=== PATIENT | male | born 1940 | race Caucasian/White ===

== ENCOUNTER 2018-12-07 16:51 | Inpatient (IN) | payer MEDICARE ==
[2018-12-07] MEDS ORDERED: Apixaban 5 MG TAB PO SCH (21:00)
[2018-12-07] MEDS: Saccharomyces boulardii 250 MG CAP PO SCH (21:51)
[2018-12-07] MEDS: Pravastatin Sodium 20 MG TAB PO SCH (21:52)
[2018-12-07] MEDS: predniSONE 20 MG TAB PO SCH (21:52)
[2018-12-07] MEDS: Gabapentin 300 MG CAP PO SCH (21:52)
[2018-12-07] MEDS: guaiFENesin ER 600 MG TAB PO SCH (21:53)
[2018-12-07] MEDS: Lidocaine Patch Removal 1 EACH TOP SCH (21:54)
[2018-12-07] MEDS: Linezolid 600 MG TAB PO SCH (21:57)
[2018-12-07] MEDS: traZODone HCl 50 MG TAB PO SCH (22:04)
[2018-12-07] MEDS ORDERED: Vancomycin HCl 25 MG/ML Oral PO SCH (23:59)
[2018-12-08] MEDS: traMADol HCl 50 MG TAB PO SCH ×5 (00:53→23:30)
[2018-12-08] MEDS ORDERED: Sterile Water 100 ML ONE (01:00)
[2018-12-08] MEDS ORDERED: STERILE WATER PO SCH (01:15)
[2018-12-08] MEDS ORDERED: VANCOMYCIN HCL PO SCH (01:15)
[2018-12-08] MEDS ORDERED: SIMPLE PO SCH (01:15)
[2018-12-08] MEDS: VANCOMYCIN HCL PO SCH ×2 (01:22→06:13)
[2018-12-08] MEDS: STERILE WATER PO SCH ×2 (01:22→06:13)
[2018-12-08] MEDS: SIMPLE PO SCH ×2 (01:22→06:13)
[2018-12-08 05:11] LABS: #Lymphocytes 0.7 thou/uL (1.20-3.40); #Monocytes 0.6 thou/uL (0.11-0.59); #Neutrophils 15.3 thou/uL (1.40-6.50); %Basophils 0.3 % (0.0-1.0); %Eosinophils 0.1 % (0.0-10.0); %Monocytes 3.7 % (0.0-10.0); Mean Corpuscular HGB CONC 34.5 g/dL (32.0-36.0); Mean Corpuscular Hemoglobin 30.6 pg (27.0-31.0); Mean Corpuscular Volume 88.9 fL (78.0-98.0); Mean Platelet Volume 7.2 fL (7.4-10.4); Platelet Count 175 thou/uL (130-400); RBC Distribution Width 14.3 % (11.5-14.5); White Blood Cell (WBC) Count 16.6 thou/uL (4.8-10.8)
[2018-12-08 05:33] LABS: ALT (SGPT) 19 U/L (8-55); AST (SGOT) 15 U/L (5-34); Albumin 3.6 g/dL (3.4-4.8); Alkaline Phosphatase 68 U/L (40-150); Anion Gap 15 mmol/L (10-20); BUN (Urea Nitrogen) 41 mg/dL (8.4-25.7); Bilirubin, Total 1.3 mg/dL (0.2-1.2); Calc. Creatinine Clearance 0 mL/min (70-130); Calcium 8.7 mg/dL (7.8-10.44); Carbon Dioxide 28 mmol/L (23-31); Chloride 101 mmol/L (98-107); Estimated GFR-MDRD 73; Globulin 2.6 g/dL (2.4-3.5); Glucose 96 mg/dL (83-110); Potassium 3.9 mmol/L (3.5-5.1); Protein, Total 6.2 g/dL (5.8-8.1); Sodium 140 mmol/L (136-145)
[2018-12-08] MEDS: HYDROcodone/Acetaminophen 5/325 mg Tablet PO PRN ×3 (08:34→20:41)
[2018-12-08] MEDS: Clopidogrel Bisulfate 75 MG TAB PO SCH (08:35)
[2018-12-08] MEDS: guaiFENesin ER 600 MG TAB PO SCH ×2 (08:35→20:40)
[2018-12-08] MEDS: Carvedilol 3.125 MG TAB PO SCH ×2 (08:36→17:25)
[2018-12-08] MEDS: Lisinopril 10 MG TAB PO SCH (08:36)
[2018-12-08] MEDS: Saccharomyces boulardii 250 MG CAP PO SCH ×2 (08:37→20:50)
[2018-12-08] MEDS: Gabapentin 300 MG CAP PO SCH ×2 (08:37→20:40)
[2018-12-08] MEDS: predniSONE 20 MG TAB PO SCH ×2 (08:37→20:39)
[2018-12-08] MEDS: DULoxetine 30 MG CAP PO SCH (08:38)
[2018-12-08] MEDS: Furosemide 40 MG TAB PO SCH (08:38)
[2018-12-08] MEDS: Nicotine 21 MG PATCH TD SCH (08:39)
[2018-12-08] MEDS: Lidocaine 5% Patch TD SCH (08:40)
[2018-12-08] MEDS: Linezolid 600 MG TAB PO SCH ×2 (08:45→20:40)
[2018-12-08] MEDS: Vancomycin HCl 25 MG/ML Oral PO SCH ×3 (10:45→21:27)
[2018-12-08] MEDS: BUPROPION 150 MG PO SCH (10:47)
[2018-12-08] MEDS: Apixaban 5 MG TAB PO SCH ×2 (10:48→20:40)
[2018-12-08] MEDS: traZODone HCl 50 MG TAB PO SCH (20:40)
[2018-12-08] MEDS: Pravastatin Sodium 20 MG TAB PO SCH (20:40)
[2018-12-08] MEDS: Lidocaine Patch Removal 1 EACH TOP SCH (20:54)
[2018-12-09] MEDS: Vancomycin HCl 25 MG/ML Oral PO SCH ×4 (03:58→21:10)
[2018-12-09 05:00] LABS: #Lymphocytes 0.8 thou/uL (1.20-3.40); #Monocytes 0.7 thou/uL (0.11-0.59); %Basophils 0.2 % (0.0-1.0); %Eosinophils 0.4 % (0.0-10.0); %Lymphocytes 5.5 % (21.0-51.0); %Monocytes 5.1 % (0.0-10.0); %Neutrophils 88.8 % (42.0-75.0); Mean Corpuscular HGB CONC 33.8 g/dL (32.0-36.0); Mean Corpuscular Hemoglobin 30.4 pg (27.0-31.0); Mean Corpuscular Volume 90.1 fL (78.0-98.0); Mean Platelet Volume 7.1 fL (7.4-10.4); Platelet Count 156 thou/uL (130-400); RBC Distribution Width 14.6 % (11.5-14.5); Red Blood Cell (RBC) Count 4.93 mill/uL (4.70-6.10); White Blood Cell (WBC) Count 13.6 thou/uL (4.8-10.8)
[2018-12-09 05:07] LABS: Anion Gap 16 mmol/L (10-20); BUN (Urea Nitrogen) 36 mg/dL (8.4-25.7); Calc. Creatinine Clearance 82 mL/min (70-130); Calcium 8.8 mg/dL (7.8-10.44); Carbon Dioxide 26 mmol/L (23-31); Chloride 102 mmol/L (98-107); Estimated GFR-MDRD 73; Glucose 105 mg/dL (83-110); Potassium 3.8 mmol/L (3.5-5.1); Sodium 140 mmol/L (136-145)
[2018-12-09] MEDS: traMADol HCl 50 MG TAB PO SCH ×3 (06:08→17:43)
[2018-12-09] MEDS: Furosemide 40 MG TAB PO SCH (07:59)
[2018-12-09] MEDS: Nicotine 21 MG PATCH TD SCH (08:07)
[2018-12-09] MEDS: BUPROPION 150 MG PO SCH (08:10)
[2018-12-09] MEDS: Lidocaine 5% Patch TD SCH (08:11)
[2018-12-09] MEDS: Carvedilol 3.125 MG TAB PO SCH ×2 (08:12→17:44)
[2018-12-09] MEDS: Apixaban 5 MG TAB PO SCH ×2 (08:12→20:58)
[2018-12-09] MEDS: guaiFENesin ER 600 MG TAB PO SCH ×2 (08:12→20:58)
[2018-12-09] MEDS: DULoxetine 30 MG CAP PO SCH (08:12)
[2018-12-09] MEDS: Gabapentin 300 MG CAP PO SCH ×2 (08:12→20:58)
[2018-12-09] MEDS: Lisinopril 10 MG TAB PO SCH (08:13)
[2018-12-09] MEDS: Saccharomyces boulardii 250 MG CAP PO SCH ×2 (08:13→20:58)
[2018-12-09] MEDS: predniSONE 20 MG TAB PO SCH ×2 (08:13→20:58)
[2018-12-09] MEDS: Clopidogrel Bisulfate 75 MG TAB PO SCH (08:13)
[2018-12-09] MEDS: Linezolid 600 MG TAB PO SCH ×2 (08:13→20:58)
[2018-12-09] MEDS: HYDROcodone/Acetaminophen 5/325 mg Tablet PO PRN (20:58)
[2018-12-09] MEDS: traZODone HCl 50 MG TAB PO SCH (20:58)
[2018-12-09] MEDS: Pravastatin Sodium 20 MG TAB PO SCH (20:58)
[2018-12-09] MEDS: Lidocaine Patch Removal 1 EACH TOP SCH (21:00)
[2018-12-10] MEDS: traMADol HCl 50 MG TAB PO SCH ×4 (00:03→17:52)
[2018-12-10] MEDS: Vancomycin HCl 25 MG/ML Oral PO SCH ×4 (04:26→21:29)
[2018-12-10 05:42] LABS: Hemoglobin 13.2 g/dL (14.0-18.0); Mean Corpuscular HGB CONC 32.1 g/dL (32.0-36.0); Mean Corpuscular Hemoglobin 29.1 pg (27.0-31.0); Mean Corpuscular Volume 90.7 fL (78.0-98.0); Mean Platelet Volume 7.1 fL (7.4-10.4); Platelet Count 135 thou/uL (130-400); RBC Distribution Width 14.6 % (11.5-14.5); Red Blood Cell (RBC) Count 4.52 mill/uL (4.70-6.10); White Blood Cell (WBC) Count 19.5 thou/uL (4.8-10.8)
[2018-12-10 06:00] LABS: Band 1 % (5-11); Eosinophils 1 % (0-10); Lymphocytes 9 % (21-51); MDiff Complete? YES; Monocytes 2 % (0-10); Neutrophil 84 % (42-75); Platelet Morphology Comment Appears Decreased; RBC Morphology Normal; Reactive Lymphocytes 3 % (0-10); Toxic Granulation SLIGHT
[2018-12-10] MEDS: Lidocaine 5% Patch TD SCH (10:51)
[2018-12-10] MEDS: Furosemide 40 MG TAB PO SCH (10:52)
[2018-12-10] MEDS: Carvedilol 3.125 MG TAB PO SCH ×2 (10:52→17:52)
[2018-12-10] MEDS: guaiFENesin ER 600 MG TAB PO SCH ×2 (10:52→21:31)
[2018-12-10] MEDS: Lisinopril 10 MG TAB PO SCH (10:52)
[2018-12-10] MEDS: Linezolid 600 MG TAB PO SCH ×2 (10:52→21:31)
[2018-12-10] MEDS: Gabapentin 300 MG CAP PO SCH ×2 (10:53→21:30)
[2018-12-10] MEDS: DULoxetine 30 MG CAP PO SCH (10:53)
[2018-12-10] MEDS: Saccharomyces boulardii 250 MG CAP PO SCH ×2 (10:54→21:31)
[2018-12-10] MEDS: predniSONE 20 MG TAB PO SCH ×2 (10:54→21:31)
[2018-12-10] MEDS: BUPROPION 150 MG PO SCH (11:02)
[2018-12-10] MEDS: Clopidogrel Bisulfate 75 MG TAB PO SCH (12:50)
[2018-12-10] MEDS: Apixaban 5 MG TAB PO SCH ×2 (12:51→21:32)
[2018-12-10] MEDS: Nicotine 21 MG PATCH TD SCH (15:33)
[2018-12-10] MEDS ORDERED: Proctozone-HC 2.5% Cream 30 GM TUBE TOP SCH (21:30)
[2018-12-10] MEDS: Pravastatin Sodium 20 MG TAB PO SCH (21:30)
[2018-12-10] MEDS: Lidocaine Patch Removal 1 EACH TOP SCH (21:31)
[2018-12-10] MEDS: traZODone HCl 50 MG TAB PO SCH (21:31)
[2018-12-11] MEDS: traMADol HCl 50 MG TAB PO SCH ×4 (00:18→18:17)
[2018-12-11] MEDS: HYDROcodone/Acetaminophen 5/325 mg Tablet PO PRN (03:15)
[2018-12-11] MEDS: Vancomycin HCl 25 MG/ML Oral PO SCH ×4 (03:21→21:14)
[2018-12-11 05:34] LABS: ALT (SGPT) 20 U/L (8-55); AST (SGOT) 10 U/L (5-34); Albumin 3.2 g/dL (3.4-4.8); Alkaline Phosphatase 75 U/L (40-150); Anion Gap 12 mmol/L (10-20); BUN (Urea Nitrogen) 35 mg/dL (8.4-25.7); Bilirubin, Total 0.7 mg/dL (0.2-1.2); Calc. Creatinine Clearance 81 mL/min (70-130); Calcium 8.4 mg/dL (7.8-10.44); Carbon Dioxide 29 mmol/L (23-31); Chloride 103 mmol/L (98-107); Estimated GFR-MDRD 72; Globulin 2.1 g/dL (2.4-3.5); Glucose 121 mg/dL (83-110); Potassium 3.4 mmol/L (3.5-5.1); Protein, Total 5.3 g/dL (5.8-8.1); Sodium 141 mmol/L (136-145)
[2018-12-11 05:45] LABS: #Lymphocytes 0.6 thou/uL (1.20-3.40); #Monocytes 0.7 thou/uL (0.11-0.59); #Neutrophils 13.2 thou/uL (1.40-6.50); %Basophils 0.2 % (0.0-1.0); %Neutrophils 90.8 % (42.0-75.0); Hemoglobin 12.4 g/dL (14.0-18.0); MDiff Complete? YES; Mean Corpuscular HGB CONC 33.1 g/dL (32.0-36.0); Mean Corpuscular Hemoglobin 29.8 pg (27.0-31.0); Mean Platelet Volume 6.9 fL (7.4-10.4); Platelet Count 100 thou/uL (130-400); Platelet Morphology Comment Appears Decreased; RBC Distribution Width 14.4 % (11.5-14.5); Red Blood Cell (RBC) Count 4.18 mill/uL (4.70-6.10); Stomatocytes SLIGHT = 2-5 cells (100X) (0-1/hpf); White Blood Cell (WBC) Count 14.5 thou/uL (4.8-10.8)
[2018-12-11] MEDS: Linezolid 600 MG TAB PO SCH ×2 (09:13→21:15)
[2018-12-11] MEDS: Saccharomyces boulardii 250 MG CAP PO SCH ×2 (09:13→21:16)
[2018-12-11] MEDS: predniSONE 20 MG TAB PO SCH ×2 (09:14→21:15)
[2018-12-11] MEDS: Gabapentin 300 MG CAP PO SCH ×2 (09:14→21:16)
[2018-12-11] MEDS: Lisinopril 10 MG TAB PO SCH (09:14)
[2018-12-11] MEDS: Furosemide 40 MG TAB PO SCH (09:15)
[2018-12-11] MEDS: Carvedilol 3.125 MG TAB PO SCH ×2 (09:15→16:59)
[2018-12-11] MEDS: DULoxetine 30 MG CAP PO SCH (09:15)
[2018-12-11] MEDS: guaiFENesin ER 600 MG TAB PO SCH ×2 (09:15→21:14)
[2018-12-11] MEDS: Lidocaine 5% Patch TD SCH (09:16)
[2018-12-11] MEDS: BUPROPION 150 MG PO SCH (09:16)
[2018-12-11] MEDS: Nicotine 21 MG PATCH TD SCH (09:16)
[2018-12-11] MEDS: Apixaban 5 MG TAB PO SCH ×2 (09:29→21:17)
[2018-12-11] MEDS: Clopidogrel Bisulfate 75 MG TAB PO SCH (09:30)
[2018-12-11] MEDS: Proctozone-HC 2.5% Cream 30 GM TUBE TOP SCH (10:49)
[2018-12-11] MEDS: traZODone HCl 50 MG TAB PO SCH (21:16)
[2018-12-11] MEDS: Pravastatin Sodium 20 MG TAB PO SCH (21:16)
[2018-12-11] MEDS: Lidocaine Patch Removal 1 EACH TOP SCH (21:17)
[2018-12-12] MEDS: traMADol HCl 50 MG TAB PO SCH ×5 (00:01→23:19)
[2018-12-12] MEDS: Vancomycin HCl 25 MG/ML Oral PO SCH ×4 (05:02→20:40)
[2018-12-12] MEDS: Clopidogrel Bisulfate 75 MG TAB PO SCH (08:45)
[2018-12-12] MEDS: Saccharomyces boulardii 250 MG CAP PO SCH ×2 (08:45→20:35)
[2018-12-12] MEDS: guaiFENesin ER 600 MG TAB PO SCH ×2 (08:45→20:37)
[2018-12-12] MEDS: Gabapentin 300 MG CAP PO SCH ×2 (08:45→20:38)
[2018-12-12] MEDS: Apixaban 5 MG TAB PO SCH ×2 (08:46→20:37)
[2018-12-12] MEDS: predniSONE 20 MG TAB PO SCH (08:46)
[2018-12-12] MEDS: Carvedilol 3.125 MG TAB PO SCH ×2 (08:46→17:20)
[2018-12-12] MEDS: Nicotine 21 MG PATCH TD SCH (08:47)
[2018-12-12] MEDS: DULoxetine 30 MG CAP PO SCH (08:47)
[2018-12-12] MEDS: Linezolid 600 MG TAB PO SCH ×2 (08:47→20:37)
[2018-12-12] MEDS: Furosemide 40 MG TAB PO SCH (08:47)
[2018-12-12] MEDS: Lisinopril 10 MG TAB PO SCH (08:48)
[2018-12-12] MEDS: Lidocaine 5% Patch TD SCH (08:48)
[2018-12-12] MEDS: Proctozone-HC 2.5% Cream 30 GM TUBE TOP SCH ×2 (08:49→16:05)
[2018-12-12] MEDS: BUPROPION 150 MG PO SCH (08:51)
[2018-12-12] MEDS: HYDROcodone/Acetaminophen 5/325 mg Tablet PO PRN (20:36)
[2018-12-12] MEDS: traZODone HCl 50 MG TAB PO SCH (20:37)
[2018-12-12] MEDS: Lidocaine Patch Removal 1 EACH TOP SCH (20:38)
[2018-12-12] MEDS: Pravastatin Sodium 20 MG TAB PO SCH (20:38)
[2018-12-13] MEDS: Vancomycin HCl 25 MG/ML Oral PO SCH ×4 (04:12→21:14)
[2018-12-13] MEDS: traMADol HCl 50 MG TAB PO SCH ×4 (05:31→23:28)
[2018-12-13] MEDS: Furosemide 40 MG TAB PO SCH (08:04)
[2018-12-13] MEDS: Carvedilol 3.125 MG TAB PO SCH ×2 (08:04→17:08)
[2018-12-13] MEDS: Saccharomyces boulardii 250 MG CAP PO SCH ×2 (09:17→21:15)
[2018-12-13] MEDS: Linezolid 600 MG TAB PO SCH ×2 (09:18→21:15)
[2018-12-13] MEDS: guaiFENesin ER 600 MG TAB PO SCH ×2 (09:18→21:14)
[2018-12-13] MEDS: DULoxetine 30 MG CAP PO SCH (09:18)
[2018-12-13] MEDS: Gabapentin 300 MG CAP PO SCH ×2 (09:19→21:15)
[2018-12-13] MEDS: Lisinopril 10 MG TAB PO SCH (09:19)
[2018-12-13] MEDS: Clopidogrel Bisulfate 75 MG TAB PO SCH (09:21)
[2018-12-13] MEDS: Apixaban 5 MG TAB PO SCH ×2 (09:21→21:15)
[2018-12-13] MEDS: BUPROPION 150 MG PO SCH (09:21)
[2018-12-13] MEDS: predniSONE 20 MG TAB PO SCH (09:21)
[2018-12-13] MEDS: Proctozone-HC 2.5% Cream 30 GM TUBE TOP SCH (09:22)
[2018-12-13] MEDS: Lidocaine 5% Patch TD SCH (09:22)
[2018-12-13] MEDS: Nicotine 21 MG PATCH TD SCH (09:24)
[2018-12-13] MEDS ORDERED: NICOTINE LOZENGES SL PRN (12:38)
[2018-12-13] MEDS: NICOTINE LOZENGES SL PRN ×6 (14:28→23:29)
[2018-12-13] MEDS: traZODone HCl 50 MG TAB PO SCH (21:15)
[2018-12-13] MEDS: Pravastatin Sodium 20 MG TAB PO SCH (21:15)
[2018-12-13] MEDS: Lidocaine Patch Removal 1 EACH TOP SCH (21:16)
[2018-12-14] MEDS: HYDROcodone/Acetaminophen 5/325 mg Tablet PO PRN (02:50)
[2018-12-14] MEDS: NICOTINE LOZENGES SL PRN ×11 (02:51→21:51)
[2018-12-14] MEDS: Vancomycin HCl 25 MG/ML Oral PO SCH ×4 (03:47→21:51)
[2018-12-14 05:20] LABS: ALT (SGPT) 25 U/L (8-55); AST (SGOT) 13 U/L (5-34); Albumin 3.5 g/dL (3.4-4.8); Alkaline Phosphatase 68 U/L (40-150); Anion Gap 14 mmol/L (10-20); BUN (Urea Nitrogen) 34 mg/dL (8.4-25.7); Bilirubin, Total 1.4 mg/dL (0.2-1.2); Calc. Creatinine Clearance 68 mL/min (70-130); Calcium 8.9 mg/dL (7.8-10.44); Carbon Dioxide 29 mmol/L (23-31); Chloride 100 mmol/L (98-107); Estimated GFR-MDRD 60; Globulin 2.3 g/dL (2.4-3.5); Glucose 77 mg/dL (83-110); Potassium 3.6 mmol/L (3.5-5.1); Protein, Total 5.8 g/dL (5.8-8.1); Sodium 139 mmol/L (136-145)
[2018-12-14 05:24] LABS: #Basophils 0.1 thou/uL (0.0-0.2); #Eosinphils 0.3 thou/uL (0.0-0.7); #Lymphocytes 2.1 thou/uL (1.20-3.40); #Neutrophils 10.4 thou/uL (1.40-6.50); %Basophils 0.5 % (0.0-1.0); %Eosinophils 1.9 % (0.0-10.0); %Lymphocytes 14.9 % (21.0-51.0); %Monocytes 7.6 % (0.0-10.0); %Neutrophils 75.1 % (42.0-75.0); Hemoglobin 12.5 g/dL (14.0-18.0); Mean Corpuscular HGB CONC 32.4 g/dL (32.0-36.0); Mean Corpuscular Volume 89.6 fL (78.0-98.0); Mean Platelet Volume 8.2 fL (7.4-10.4); Platelet Count 75 thou/uL (130-400); Platelet Morphology Comment Appears Decreased; RBC Distribution Width 14.6 % (11.5-14.5); RBC Morphology Normal; Red Blood Cell (RBC) Count 4.29 mill/uL (4.70-6.10); White Blood Cell (WBC) Count 13.8 thou/uL (4.8-10.8)
[2018-12-14 05:26] LABS: MDiff Complete? YES; Manual Diff?? NO
[2018-12-14] MEDS: traMADol HCl 50 MG TAB PO SCH ×3 (06:03→17:35)
[2018-12-14] MEDS: Apixaban 5 MG TAB PO SCH ×2 (07:42→20:25)
[2018-12-14] MEDS: Saccharomyces boulardii 250 MG CAP PO SCH ×2 (07:42→20:25)
[2018-12-14] MEDS: Lisinopril 10 MG TAB PO SCH (07:43)
[2018-12-14] MEDS: Gabapentin 300 MG CAP PO SCH ×2 (07:43→20:24)
[2018-12-14] MEDS: Clopidogrel Bisulfate 75 MG TAB PO SCH (07:43)
[2018-12-14] MEDS: guaiFENesin ER 600 MG TAB PO SCH ×2 (07:43→20:24)
[2018-12-14] MEDS: Carvedilol 3.125 MG TAB PO SCH ×2 (07:47→17:35)
[2018-12-14] MEDS: Furosemide 40 MG TAB PO SCH (07:47)
[2018-12-14] MEDS: Linezolid 600 MG TAB PO SCH (07:47)
[2018-12-14] MEDS: DULoxetine 30 MG CAP PO SCH (07:47)
[2018-12-14] MEDS: predniSONE 20 MG TAB PO SCH (07:47)
[2018-12-14] MEDS: Nicotine 21 MG PATCH TD SCH (07:48)
[2018-12-14] MEDS: Lidocaine 5% Patch TD SCH (07:48)
[2018-12-14] MEDS: BUPROPION 150 MG PO SCH (07:49)
[2018-12-14] MEDS: Proctozone-HC 2.5% Cream 30 GM TUBE TOP SCH (08:23)
[2018-12-14] MEDS: Zolpidem Tartrate 5 MG TAB PO SCH (20:24)
[2018-12-14] MEDS: traZODone HCl 50 MG TAB PO SCH (20:24)
[2018-12-14] MEDS: Lidocaine Patch Removal 1 EACH TOP SCH (20:25)
[2018-12-14] MEDS: Pravastatin Sodium 20 MG TAB PO SCH (20:25)
[2018-12-15] MEDS: traMADol HCl 50 MG TAB PO SCH ×5 (00:06→23:50)
[2018-12-15] MEDS: Vancomycin HCl 25 MG/ML Oral PO SCH ×4 (05:12→21:19)
[2018-12-15 05:26] LABS: #Basophils 0.1 thou/uL (0.0-0.2); #Eosinphils 0.2 thou/uL (0.0-0.7); #Lymphocytes 2.2 thou/uL (1.20-3.40); #Neutrophils 9.6 thou/uL (1.40-6.50); %Basophils 0.7 % (0.0-1.0); %Eosinophils 1.8 % (0.0-10.0); %Lymphocytes 16.4 % (21.0-51.0); %Monocytes 7.9 % (0.0-10.0); %Neutrophils 73.2 % (42.0-75.0); Hemoglobin 11.7 g/dL (14.0-18.0); Mean Corpuscular HGB CONC 31.5 g/dL (32.0-36.0); Mean Corpuscular Hemoglobin 28.9 pg (27.0-31.0); Mean Corpuscular Volume 91.9 fL (78.0-98.0); Mean Platelet Volume 9.5 fL (7.4-10.4); Platelet Count 68 thou/uL (130-400); Platelet Morphology Comment Appears Decreased; RBC Distribution Width 14.7 % (11.5-14.5); RBC Morphology Normal; Red Blood Cell (RBC) Count 4.04 mill/uL (4.70-6.10); White Blood Cell (WBC) Count 13.1 thou/uL (4.8-10.8)
[2018-12-15 05:33] LABS: MDiff Complete? YES; Manual Diff?? NO
[2018-12-15] MEDS: Lidocaine 5% Patch TD SCH (09:26)
[2018-12-15] MEDS: Nicotine 21 MG PATCH TD SCH (09:27)
[2018-12-15] MEDS: guaiFENesin ER 600 MG TAB PO SCH ×2 (09:28→21:18)
[2018-12-15] MEDS: Clopidogrel Bisulfate 75 MG TAB PO SCH (09:29)
[2018-12-15] MEDS: DULoxetine 30 MG CAP PO SCH (09:29)
[2018-12-15] MEDS: Apixaban 5 MG TAB PO SCH ×2 (09:30→21:18)
[2018-12-15] MEDS: Carvedilol 3.125 MG TAB PO SCH ×2 (09:30→17:48)
[2018-12-15] MEDS: Lisinopril 10 MG TAB PO SCH (09:31)
[2018-12-15] MEDS: Furosemide 40 MG TAB PO SCH (09:31)
[2018-12-15] MEDS: predniSONE 20 MG TAB PO SCH (09:31)
[2018-12-15] MEDS: BUPROPION 150 MG PO SCH (09:32)
[2018-12-15] MEDS: Gabapentin 300 MG CAP PO SCH ×2 (09:32→21:18)
[2018-12-15] MEDS: Saccharomyces boulardii 250 MG CAP PO SCH ×2 (09:33→21:18)
[2018-12-15] MEDS: HYDROcodone/Acetaminophen 5/325 mg Tablet PO PRN (11:02)
[2018-12-15] MEDS: Proctozone-HC 2.5% Cream 30 GM TUBE TOP SCH (11:10)
[2018-12-15 16:14] LABS: Routine O & P Final report (.)
[2018-12-15] MEDS: traZODone HCl 50 MG TAB PO SCH (21:18)
[2018-12-15] MEDS: Pravastatin Sodium 20 MG TAB PO SCH (21:18)
[2018-12-15] MEDS: Lidocaine Patch Removal 1 EACH TOP SCH (21:19)
[2018-12-15] MEDS: Zolpidem Tartrate 5 MG TAB PO SCH (21:26)
[2018-12-16] MEDS: HYDROcodone/Acetaminophen 5/325 mg Tablet PO PRN (03:15)
[2018-12-16] MEDS: Vancomycin HCl 25 MG/ML Oral PO SCH ×4 (03:15→21:45)
[2018-12-16] MEDS ORDERED: Sodium Chloride 0.9% 10 ML ONE (04:50)
[2018-12-16 05:20] LABS: Anion Gap 12 mmol/L (10-20); BUN (Urea Nitrogen) 25 mg/dL (8.4-25.7); Calc. Creatinine Clearance 70 mL/min (70-130); Calcium 8.8 mg/dL (7.8-10.44); Carbon Dioxide 28 mmol/L (23-31); Chloride 101 mmol/L (98-107); Estimated GFR-MDRD 62; Glucose 80 mg/dL (83-110); Potassium 3.3 mmol/L (3.5-5.1); Sodium 138 mmol/L (136-145)
[2018-12-16 05:29] LABS: #Eosinphils 0.3 thou/uL (0.0-0.7); #Lymphocytes 2.2 thou/uL (1.20-3.40); #Monocytes 0.9 thou/uL (0.11-0.59); #Neutrophils 8.9 thou/uL (1.40-6.50); %Basophils 0.4 % (0.0-1.0); %Eosinophils 2.4 % (0.0-10.0); %Lymphocytes 17.6 % (21.0-51.0); %Monocytes 7.4 % (0.0-10.0); %Neutrophils 72.2 % (42.0-75.0); Anisocytosis SLIGHT = 6-15 cells (100X) (0-5/hpf); Hemoglobin 11.3 g/dL (14.0-18.0); MDiff Complete? YES; Mean Corpuscular HGB CONC 32.5 g/dL (32.0-36.0); Mean Corpuscular Hemoglobin 29.4 pg (27.0-31.0); Mean Corpuscular Volume 90.4 fL (78.0-98.0); Mean Platelet Volume 8.5 fL (7.4-10.4); Platelet Count 61 thou/uL (130-400); Platelet Morphology Comment Appears Decreased; RBC Distribution Width 14.2 % (11.5-14.5); Red Blood Cell (RBC) Count 3.86 mill/uL (4.70-6.10); Stomatocytes SLIGHT = 2-5 cells (100X) (0-1/hpf); White Blood Cell (WBC) Count 12.4 thou/uL (4.8-10.8)
[2018-12-16] MEDS: traMADol HCl 50 MG TAB PO SCH ×4 (06:10→23:43)
[2018-12-16] MEDS ORDERED: Potassium Chloride 20 MEQ TAB PO SCH (08:15)
[2018-12-16] MEDS: Carvedilol 3.125 MG TAB PO SCH ×2 (09:06→17:21)
[2018-12-16] MEDS: DULoxetine 30 MG CAP PO SCH (09:06)
[2018-12-16] MEDS: Gabapentin 300 MG CAP PO SCH ×2 (09:06→21:46)
[2018-12-16] MEDS: guaiFENesin ER 600 MG TAB PO SCH ×2 (09:07→21:46)
[2018-12-16] MEDS: Lisinopril 10 MG TAB PO SCH (09:07)
[2018-12-16] MEDS: Apixaban 5 MG TAB PO SCH ×2 (09:08→21:47)
[2018-12-16] MEDS: Furosemide 40 MG TAB PO SCH (09:08)
[2018-12-16] MEDS: Saccharomyces boulardii 250 MG CAP PO SCH ×2 (09:09→21:46)
[2018-12-16] MEDS: predniSONE 20 MG TAB PO SCH (09:09)
[2018-12-16] MEDS: Clopidogrel Bisulfate 75 MG TAB PO SCH (09:13)
[2018-12-16] MEDS: Lidocaine 5% Patch TD SCH (09:15)
[2018-12-16] MEDS: Proctozone-HC 2.5% Cream 30 GM TUBE TOP SCH (09:17)
[2018-12-16] MEDS: Nicotine 21 MG PATCH TD SCH (09:18)
[2018-12-16] MEDS: BUPROPION 150 MG PO SCH (09:19)
[2018-12-16] MEDS: Pravastatin Sodium 20 MG TAB PO SCH (21:46)
[2018-12-16] MEDS: traZODone HCl 50 MG TAB PO SCH (21:46)
[2018-12-16] MEDS: Lidocaine Patch Removal 1 EACH TOP SCH (21:47)
[2018-12-16] MEDS ORDERED: Zolpidem Tartrate 5 MG TAB PO PRN (21:51)
[2018-12-16] MEDS: Zolpidem Tartrate 5 MG TAB PO SCH (23:18)
[2018-12-17] MEDS: Vancomycin HCl 25 MG/ML Oral PO SCH ×4 (04:30→23:46)
[2018-12-17 04:50] LABS: Anion Gap 14 mmol/L (10-20); BUN (Urea Nitrogen) 21 mg/dL (8.4-25.7); Calc. Creatinine Clearance 66 mL/min (70-130); Calcium 8.8 mg/dL (7.8-10.44); Carbon Dioxide 29 mmol/L (23-31); Chloride 99 mmol/L (98-107); Estimated GFR-MDRD 58; Glucose 80 mg/dL (83-110); Potassium 3.6 mmol/L (3.5-5.1); Sodium 138 mmol/L (136-145)
[2018-12-17 05:06] LABS: #Basophils 0.1 thou/uL (0.0-0.2); #Eosinphils 0.2 thou/uL (0.0-0.7); #Monocytes 1.1 thou/uL (0.11-0.59); #Neutrophils 8.6 thou/uL (1.40-6.50); %Basophils 0.6 % (0.0-1.0); %Eosinophils 1.7 % (0.0-10.0); %Lymphocytes 16.4 % (21.0-51.0); %Neutrophils 72.4 % (42.0-75.0); Hemoglobin 11.5 g/dL (14.0-18.0); Mean Corpuscular HGB CONC 33.5 g/dL (32.0-36.0); Mean Corpuscular Hemoglobin 29.8 pg (27.0-31.0); Mean Corpuscular Volume 88.9 fL (78.0-98.0); Mean Platelet Volume 8.2 fL (7.4-10.4); Platelet Count 68 thou/uL (130-400); Red Blood Cell (RBC) Count 3.85 mill/uL (4.70-6.10); White Blood Cell (WBC) Count 11.9 thou/uL (4.8-10.8)
[2018-12-17 05:07] LABS: Platelet Morphology Comment Appears Decreased; RBC Morphology Normal
[2018-12-17 05:09] LABS: Manual Diff?? NO
[2018-12-17] MEDS: traMADol HCl 50 MG TAB PO SCH ×4 (06:09→23:47)
[2018-12-17] MEDS: Lidocaine 5% Patch TD SCH (09:15)
[2018-12-17] MEDS: Nicotine 21 MG PATCH TD SCH (09:16)
[2018-12-17] MEDS: BUPROPION 150 MG PO SCH (09:16)
[2018-12-17] MEDS: Potassium Chloride 20 MEQ TAB PO SCH (09:18)
[2018-12-17] MEDS: Apixaban 5 MG TAB PO SCH ×2 (09:18→23:48)
[2018-12-17] MEDS: DULoxetine 30 MG CAP PO SCH (09:18)
[2018-12-17] MEDS: guaiFENesin ER 600 MG TAB PO SCH ×2 (09:18→23:47)
[2018-12-17] MEDS: Furosemide 40 MG TAB PO SCH (09:18)
[2018-12-17] MEDS: Clopidogrel Bisulfate 75 MG TAB PO SCH (09:19)
[2018-12-17] MEDS: Lisinopril 10 MG TAB PO SCH (09:19)
[2018-12-17] MEDS: Gabapentin 300 MG CAP PO SCH ×2 (09:19→23:46)
[2018-12-17] MEDS: Carvedilol 3.125 MG TAB PO SCH ×2 (09:19→17:54)
[2018-12-17] MEDS: Saccharomyces boulardii 250 MG CAP PO SCH ×2 (09:20→23:46)
[2018-12-17] MEDS: Proctozone-HC 2.5% Cream 30 GM TUBE TOP SCH (09:21)
[2018-12-17] MEDS: Pravastatin Sodium 20 MG TAB PO SCH (23:46)
[2018-12-17] MEDS: traZODone HCl 50 MG TAB PO SCH (23:47)
[2018-12-17] MEDS: Lidocaine Patch Removal 1 EACH TOP SCH (23:48)
[2018-12-18] MEDS: Vancomycin HCl 25 MG/ML Oral PO SCH ×5 (05:11→23:33)
[2018-12-18] MEDS: traMADol HCl 50 MG TAB PO SCH ×4 (05:12→23:34)
[2018-12-18] MEDS: BUPROPION 150 MG PO SCH (10:38)
[2018-12-18] MEDS: guaiFENesin ER 600 MG TAB PO SCH ×2 (10:39→22:30)
[2018-12-18] MEDS: predniSONE 10 MG TAB PO SCH (10:40)
[2018-12-18] MEDS: Gabapentin 300 MG CAP PO SCH ×2 (10:40→22:30)
[2018-12-18] MEDS: Potassium Chloride 20 MEQ TAB PO SCH (10:40)
[2018-12-18] MEDS: Furosemide 40 MG TAB PO SCH (10:40)
[2018-12-18] MEDS: Carvedilol 3.125 MG TAB PO SCH ×2 (10:40→18:22)
[2018-12-18] MEDS: Clopidogrel Bisulfate 75 MG TAB PO SCH (10:41)
[2018-12-18] MEDS: Saccharomyces boulardii 250 MG CAP PO SCH ×2 (10:41→22:30)
[2018-12-18] MEDS: DULoxetine 30 MG CAP PO SCH (10:41)
[2018-12-18] MEDS: Apixaban 5 MG TAB PO SCH ×2 (10:41→22:30)
[2018-12-18] MEDS: Nicotine 21 MG PATCH TD SCH (10:42)
[2018-12-18] MEDS: Lidocaine 5% Patch TD SCH (10:45)
[2018-12-18] MEDS: Lisinopril 10 MG TAB PO SCH (10:55)
[2018-12-18] MEDS: Proctozone-HC 2.5% Cream 30 GM TUBE TOP SCH (10:57)
[2018-12-18] MEDS: Acetaminophen 325 MG TAB PO PRN (22:30)
[2018-12-18] MEDS: traZODone HCl 50 MG TAB PO SCH (22:30)
[2018-12-18] MEDS: Pravastatin Sodium 20 MG TAB PO SCH (22:30)
[2018-12-18] MEDS: Lidocaine Patch Removal 1 EACH TOP SCH (22:31)
[2018-12-19] MEDS: traMADol HCl 50 MG TAB PO SCH ×4 (06:02→23:24)
[2018-12-19] MEDS: Vancomycin HCl 25 MG/ML Oral PO SCH ×4 (06:02→23:23)
[2018-12-19 08:13] LABS: Hemoglobin 11.3 g/dL (14.0-18.0); Platelet Count 92 thou/uL (130-400)
[2018-12-19] MEDS: Lisinopril 10 MG TAB PO SCH (10:07)
[2018-12-19] MEDS: Gabapentin 300 MG CAP PO SCH ×2 (10:08→21:43)
[2018-12-19] MEDS: Apixaban 5 MG TAB PO SCH ×2 (10:08→21:43)
[2018-12-19] MEDS: DULoxetine 30 MG CAP PO SCH (10:08)
[2018-12-19] MEDS: predniSONE 10 MG TAB PO SCH (10:08)
[2018-12-19] MEDS: Carvedilol 3.125 MG TAB PO SCH ×2 (10:09→18:23)
[2018-12-19] MEDS: Potassium Chloride 20 MEQ TAB PO SCH (10:09)
[2018-12-19] MEDS: Furosemide 40 MG TAB PO SCH (10:09)
[2018-12-19] MEDS: Nicotine 21 MG PATCH TD SCH (10:14)
[2018-12-19] MEDS: Lidocaine 5% Patch TD SCH (10:14)
[2018-12-19] MEDS: Clopidogrel Bisulfate 75 MG TAB PO SCH (10:18)
[2018-12-19] MEDS: guaiFENesin ER 600 MG TAB PO SCH ×2 (10:18→21:43)
[2018-12-19] MEDS: Proctozone-HC 2.5% Cream 30 GM TUBE TOP SCH (10:18)
[2018-12-19] MEDS: Saccharomyces boulardii 250 MG CAP PO SCH ×2 (10:33→21:43)
[2018-12-19] MEDS: BUPROPION 150 MG PO SCH (10:48)
[2018-12-19] MEDS: HYDROcodone/Acetaminophen 5/325 mg Tablet PO PRN (13:27)
[2018-12-19] MEDS: Pravastatin Sodium 20 MG TAB PO SCH (21:43)
[2018-12-19] MEDS: traZODone HCl 50 MG TAB PO SCH (21:43)
[2018-12-19] MEDS: Lidocaine Patch Removal 1 EACH TOP SCH (21:44)
[2018-12-20 05:09] LABS: #Basophils 0.1 thou/uL (0.0-0.2); #Eosinphils 0.3 thou/uL (0.0-0.7); #Lymphocytes 1.6 thou/uL (1.20-3.40); #Monocytes 0.7 thou/uL (0.11-0.59); #Neutrophils 5.7 thou/uL (1.40-6.50); %Basophils 0.6 % (0.0-1.0); %Eosinophils 3.1 % (0.0-10.0); %Lymphocytes 19.1 % (21.0-51.0); %Monocytes 8.6 % (0.0-10.0); %Neutrophils 68.6 % (42.0-75.0); Hemoglobin 10.5 g/dL (14.0-18.0); Mean Corpuscular HGB CONC 33.3 g/dL (32.0-36.0); Mean Corpuscular Hemoglobin 30.3 pg (27.0-31.0); Mean Corpuscular Volume 90.9 fL (78.0-98.0); Mean Platelet Volume 7.8 fL (7.4-10.4); Platelet Count 99 thou/uL (130-400); RBC Distribution Width 14.3 % (11.5-14.5); RBC Morphology Normal; Red Blood Cell (RBC) Count 3.47 mill/uL (4.70-6.10); White Blood Cell (WBC) Count 8.3 thou/uL (4.8-10.8)
[2018-12-20 05:21] LABS: ALT (SGPT) 28 U/L (8-55); AST (SGOT) 21 U/L (5-34); Albumin 3.3 g/dL (3.4-4.8); Alkaline Phosphatase 67 U/L (40-150); Anion Gap 15 mmol/L (10-20); BUN (Urea Nitrogen) 21 mg/dL (8.4-25.7); Bilirubin, Total 0.6 mg/dL (0.2-1.2); Calc. Creatinine Clearance 57 mL/min (70-130); Calcium 8.9 mg/dL (7.8-10.44); Carbon Dioxide 28 mmol/L (23-31); Chloride 101 mmol/L (98-107); Estimated GFR-MDRD 51; Globulin 2.5 g/dL (2.4-3.5); Glucose 85 mg/dL (83-110); Potassium 3.9 mmol/L (3.5-5.1); Protein, Total 5.8 g/dL (5.8-8.1); Sodium 140 mmol/L (136-145)
[2018-12-20 05:31] LABS: Platelet Morphology Comment Appears Decreased
[2018-12-20] MEDS: traMADol HCl 50 MG TAB PO SCH ×4 (06:03→23:27)
[2018-12-20] MEDS: Vancomycin HCl 25 MG/ML Oral PO SCH ×4 (06:05→23:26)
[2018-12-20] MEDS: Carvedilol 3.125 MG TAB PO SCH ×2 (08:51→17:42)
[2018-12-20] MEDS: Potassium Chloride 20 MEQ TAB PO SCH (08:51)
[2018-12-20] MEDS: Furosemide 40 MG TAB PO SCH (08:52)
[2018-12-20] MEDS: Clopidogrel Bisulfate 75 MG TAB PO SCH (09:05)
[2018-12-20] MEDS: Proctozone-HC 2.5% Cream 30 GM TUBE TOP SCH (09:10)
[2018-12-20] MEDS: Lidocaine 5% Patch TD SCH (09:49)
[2018-12-20] MEDS: Nicotine 21 MG PATCH TD SCH (09:51)
[2018-12-20] MEDS: guaiFENesin ER 600 MG TAB PO SCH ×2 (09:53→20:56)
[2018-12-20] MEDS: predniSONE 10 MG TAB PO SCH (09:53)
[2018-12-20] MEDS: Lisinopril 10 MG TAB PO SCH (09:54)
[2018-12-20] MEDS: Gabapentin 300 MG CAP PO SCH ×2 (09:54→20:55)
[2018-12-20] MEDS: DULoxetine 30 MG CAP PO SCH (09:55)
[2018-12-20] MEDS: Saccharomyces boulardii 250 MG CAP PO SCH ×2 (09:55→20:55)
[2018-12-20] MEDS: BUPROPION 150 MG PO SCH (10:01)
[2018-12-20] MEDS: traZODone HCl 50 MG TAB PO SCH (20:55)
[2018-12-20] MEDS: Lidocaine Patch Removal 1 EACH TOP SCH (20:56)
[2018-12-20] MEDS: Pravastatin Sodium 20 MG TAB PO SCH (20:56)
[2018-12-21] MEDS: traMADol HCl 50 MG TAB PO SCH ×3 (06:16→17:53)
[2018-12-21] MEDS: Vancomycin HCl 25 MG/ML Oral PO SCH ×3 (06:16→18:54)
[2018-12-21] MEDS: Potassium Chloride 20 MEQ TAB PO SCH (08:48)
[2018-12-21] MEDS: Furosemide 40 MG TAB PO SCH (08:49)
[2018-12-21] MEDS: Carvedilol 3.125 MG TAB PO SCH ×2 (08:49→17:52)
[2018-12-21] MEDS: DULoxetine 30 MG CAP PO SCH (10:42)
[2018-12-21] MEDS: predniSONE 10 MG TAB PO SCH (10:42)
[2018-12-21] MEDS: Gabapentin 300 MG CAP PO SCH ×2 (10:42→22:25)
[2018-12-21] MEDS: Clopidogrel Bisulfate 75 MG TAB PO SCH (10:42)
[2018-12-21] MEDS: Lisinopril 10 MG TAB PO SCH (10:43)
[2018-12-21] MEDS: Saccharomyces boulardii 250 MG CAP PO SCH ×2 (10:43→22:25)
[2018-12-21] MEDS: guaiFENesin ER 600 MG TAB PO SCH ×2 (10:43→22:25)
[2018-12-21] MEDS: Proctozone-HC 2.5% Cream 30 GM TUBE TOP SCH (10:45)
[2018-12-21] MEDS: Lidocaine 5% Patch TD SCH (10:45)
[2018-12-21] MEDS: Nicotine 21 MG PATCH TD SCH (10:45)
[2018-12-21] MEDS: BUPROPION 150 MG PO SCH (10:46)
[2018-12-21 14:47] VITALS: BMI 26.9
[2018-12-21] MEDS: HYDROcodone/Acetaminophen 5/325 mg Tablet PO PRN (14:59)
[2018-12-21] MEDS: Pravastatin Sodium 20 MG TAB PO SCH (22:25)
[2018-12-21] MEDS: traZODone HCl 50 MG TAB PO SCH (22:25)
[2018-12-21] MEDS: Lidocaine Patch Removal 1 EACH TOP SCH (22:26)
[2018-12-21] MEDS: Acetaminophen 325 MG TAB PO PRN (22:34)
[2018-12-22] MEDS: Vancomycin HCl 25 MG/ML Oral PO SCH ×3 (00:06→11:59)
[2018-12-22] MEDS: traMADol HCl 50 MG TAB PO SCH ×5 (00:07→23:16)
[2018-12-22 05:21] LABS: #Basophils 0.1 thou/uL (0.0-0.2); #Eosinphils 0.2 thou/uL (0.0-0.7); #Lymphocytes 1.3 thou/uL (1.20-3.40); #Monocytes 0.7 thou/uL (0.11-0.59); %Basophils 1.3 % (0.0-1.0); %Eosinophils 2.3 % (0.0-10.0); %Lymphocytes 18.2 % (21.0-51.0); %Monocytes 9.5 % (0.0-10.0); %Neutrophils 68.7 % (42.0-75.0); Hemoglobin 10.9 g/dL (14.0-18.0); Mean Corpuscular HGB CONC 32.2 g/dL (32.0-36.0); Mean Corpuscular Hemoglobin 28.9 pg (27.0-31.0); Mean Corpuscular Volume 89.9 fL (78.0-98.0); Mean Platelet Volume 7.5 fL (7.4-10.4); Platelet Count 156 thou/uL (130-400); RBC Distribution Width 14.7 % (11.5-14.5); Red Blood Cell (RBC) Count 3.75 mill/uL (4.70-6.10); White Blood Cell (WBC) Count 7.2 thou/uL (4.8-10.8)
[2018-12-22] MEDS: Saccharomyces boulardii 250 MG CAP PO SCH ×2 (08:30→20:08)
[2018-12-22] MEDS: DULoxetine 30 MG CAP PO SCH (08:31)
[2018-12-22] MEDS: guaiFENesin ER 600 MG TAB PO SCH ×2 (08:31→20:06)
[2018-12-22] MEDS: Potassium Chloride 20 MEQ TAB PO SCH (08:31)
[2018-12-22] MEDS: Furosemide 40 MG TAB PO SCH (08:32)
[2018-12-22] MEDS: Clopidogrel Bisulfate 75 MG TAB PO SCH (08:32)
[2018-12-22] MEDS: Lisinopril 10 MG TAB PO SCH (08:32)
[2018-12-22] MEDS: Gabapentin 300 MG CAP PO SCH ×2 (08:32→20:08)
[2018-12-22] MEDS: Carvedilol 3.125 MG TAB PO SCH ×2 (08:33→16:44)
[2018-12-22] MEDS: predniSONE 10 MG TAB PO SCH (08:34)
[2018-12-22] MEDS: Lidocaine 5% Patch TD SCH (08:35)
[2018-12-22] MEDS: Proctozone-HC 2.5% Cream 30 GM TUBE TOP SCH (08:38)
[2018-12-22] MEDS: BUPROPION 150 MG PO SCH (08:40)
[2018-12-22] MEDS: Nicotine 21 MG PATCH TD SCH (08:41)
[2018-12-22] MEDS: Cyclobenzaprine 10 MG TAB PO PRN (11:02)
[2018-12-22] MEDS: Lidocaine Patch Removal 1 EACH TOP SCH (20:05)
[2018-12-22] MEDS: traZODone HCl 50 MG TAB PO SCH (20:06)
[2018-12-22] MEDS: Pravastatin Sodium 20 MG TAB PO SCH (20:08)
[2018-12-23] MEDS: traMADol HCl 50 MG TAB PO SCH ×3 (06:18→18:06)
[2018-12-23] MEDS ORDERED: Lisinopril 10 MG TAB PO SCH (08:06)
[2018-12-23] MEDS: Nicotine 21 MG PATCH TD SCH (08:28)
[2018-12-23] MEDS: Lidocaine 5% Patch TD SCH (08:30)
[2018-12-23] MEDS: Gabapentin 300 MG CAP PO SCH ×2 (08:34→20:36)
[2018-12-23] MEDS: Carvedilol 3.125 MG TAB PO SCH ×2 (08:35→18:06)
[2018-12-23] MEDS: Furosemide 40 MG TAB PO SCH (08:35)
[2018-12-23] MEDS: guaiFENesin ER 600 MG TAB PO SCH ×2 (08:35→20:36)
[2018-12-23] MEDS: DULoxetine 30 MG CAP PO SCH (08:35)
[2018-12-23] MEDS: Potassium Chloride 20 MEQ TAB PO SCH (08:35)
[2018-12-23] MEDS: Clopidogrel Bisulfate 75 MG TAB PO SCH (08:35)
[2018-12-23] MEDS: predniSONE 10 MG TAB PO SCH (08:36)
[2018-12-23] MEDS: BUPROPION 150 MG PO SCH (08:36)
[2018-12-23] MEDS: Saccharomyces boulardii 250 MG CAP PO SCH ×2 (08:36→20:36)
[2018-12-23] MEDS: Lisinopril 5 MG TAB PO SCH (08:49)
[2018-12-23] MEDS: Proctozone-HC 2.5% Cream 30 GM TUBE TOP SCH (08:55)
[2018-12-23] MEDS: traZODone HCl 50 MG TAB PO SCH (20:35)
[2018-12-23] MEDS: Pravastatin Sodium 20 MG TAB PO SCH (20:37)
[2018-12-23] MEDS: Lidocaine Patch Removal 1 EACH TOP SCH (21:13)
[2018-12-24] MEDS: HYDROcodone/Acetaminophen 5/325 mg Tablet PO PRN ×2 (00:32→05:45)
[2018-12-24] MEDS: Cyclobenzaprine 10 MG TAB PO PRN (00:33)
[2018-12-24] MEDS: traMADol HCl 50 MG TAB PO SCH ×3 (00:36→12:16)
[2018-12-24 05:14] LABS: #Basophils 0.1 thou/uL (0.0-0.2); #Eosinphils 0.4 thou/uL (0.0-0.7); #Monocytes 0.9 thou/uL (0.11-0.59); #Neutrophils 7.3 thou/uL (1.40-6.50); %Eosinophils 3.3 % (0.0-10.0); %Lymphocytes 19.1 % (21.0-51.0); %Monocytes 7.9 % (0.0-10.0); %Neutrophils 68.6 % (42.0-75.0); Hemoglobin 12.6 g/dL (14.0-18.0); Mean Corpuscular HGB CONC 33.7 g/dL (32.0-36.0); Mean Corpuscular Hemoglobin 29.9 pg (27.0-31.0); Mean Corpuscular Volume 88.6 fL (78.0-98.0); Mean Platelet Volume 6.2 fL (7.4-10.4); Platelet Count 256 thou/uL (130-400); RBC Distribution Width 14.6 % (11.5-14.5); Red Blood Cell (RBC) Count 4.21 mill/uL (4.70-6.10); White Blood Cell (WBC) Count 10.7 thou/uL (4.8-10.8)
[2018-12-24 05:20] LABS: ALT (SGPT) 26 U/L (8-55); AST (SGOT) 22 U/L (5-34); Alkaline Phosphatase 87 U/L (40-150); Anion Gap 16 mmol/L (10-20); BUN (Urea Nitrogen) 17 mg/dL (8.4-25.7); Bilirubin, Total 0.7 mg/dL (0.2-1.2); Calc. Creatinine Clearance 53 mL/min (70-130); Calcium 9.6 mg/dL (7.8-10.44); Carbon Dioxide 26 mmol/L (23-31); Chloride 99 mmol/L (98-107); Estimated GFR-MDRD 47; Globulin 2.8 g/dL (2.4-3.5); Glucose 86 mg/dL (83-110); Potassium 4.1 mmol/L (3.5-5.1); Protein, Total 6.8 g/dL (5.8-8.1); Sodium 137 mmol/L (136-145)
[2018-12-24 06:00] VITALS: BP 138/65; TEMP 97.7
[2018-12-24] MEDS: Nicotine 21 MG PATCH TD SCH (08:22)
[2018-12-24] MEDS: Lidocaine 5% Patch TD SCH (08:22)
[2018-12-24] MEDS: Saccharomyces boulardii 250 MG CAP PO SCH (08:23)
[2018-12-24] MEDS: Carvedilol 3.125 MG TAB PO SCH (08:23)
[2018-12-24] MEDS: Potassium Chloride 20 MEQ TAB PO SCH (08:23)
[2018-12-24] MEDS: guaiFENesin ER 600 MG TAB PO SCH (08:23)
[2018-12-24] MEDS: Gabapentin 300 MG CAP PO SCH (08:23)
[2018-12-24] MEDS: DULoxetine 30 MG CAP PO SCH (08:23)
[2018-12-24] MEDS: Furosemide 40 MG TAB PO SCH (08:23)
[2018-12-24] MEDS: Clopidogrel Bisulfate 75 MG TAB PO SCH (08:24)
[2018-12-24] MEDS: Lisinopril 5 MG TAB PO SCH (08:24)
[2018-12-24] MEDS: Proctozone-HC 2.5% Cream 30 GM TUBE TOP SCH (08:25)
[2018-12-24] MEDS: BUPROPION 150 MG PO SCH (08:26)
--- NOTE | 2018-12-27 07:58 | DIS ---
DATE OF ADMISSION: 12/07/2018 DATE OF DISCHARGE: 12/24/2018 ADMISSION DIAGNOSES: 1. Physical deconditioning. 2. Methicillin-resistant Staphylococcus aureus tracheobronchitis. 3. Diarrhea, positive for Clostridium difficile antigen, toxin negative. 4. Chronic obstructive pulmonary disease. 5. Rib fracture. 6. Hypertension. 7. Dyslipidemia. 8. Depression. 9. Coronary artery disease. 10. Diastolic congestive heart failure. 11. Memory impairment. PROCEDURES: None other than working with PT and OT. HOSPITAL COURSE: A 78-year-old male, presented to [facility] to participate with physical therapy and occupational therapy and complete an antibiotic course, status post admission at [facility] in [place], where he initially presented with acute hypoxic respiratory failure secondary to COPD exacerbation. The patient was subsequently found to have MRSA in his respiratory culture. During his stay, he developed diarrhea as well, which was positive for Clostridium difficile antigen and toxin negative. He developed physical deconditioning, requiring transition to [facility] facility to work with Physical Therapy and Occupational Therapy. He was transferred to complete a course of vancomycin and Zyvox. His stool studies were repeated, and C. diff was negative. His diarrhea improved. The patient developed thrombocytopenia, which was felt to be secondary to his Zyvox, thus this medication was stopped 1 day early, and his platelets increased back to normal levels thereafter. He did complete his course of p.o. vancomycin as advised. The patient remained on a prednisone taper throughout his stay and will complete this as an outpatient. As the patient's CBC was trended, he did have a drop in his hemoglobin attributed to rectal bleeding from a hemorrhoid. He was provided medication for this issue, and his hemoglobin steadily increased back to his baseline; notably, hemoglobin 12.6 on day of discharge. The patient's leukocytosis completely resolved prior to discharge home. The patient does have some memory impairments and is often disoriented during his stay accordingly. He typically lives at home with his in [place]. Tele[employer] Installer did consult with the patient to see if he may be a good candidate for usp placement; however, he and his decided that they would rather him return back to his home setting at this time. The patient reports to be feeling well and is amenable to discharge back to his home setting and may follow up with his primary [facility] physician [facility] the [facility]. DISPOSITION: The patient may follow up with Dr. Fraser at the [facility] in 1 week. He will be discharged back to his home setting, where he lives with his in [place]. DISCHARGE MEDICATIONS: 1. Wellbutrin XL 150 mg p.o. daily. 2. Plavix 75 mg p.o. daily. 3. Lisinopril 10 mg p.o. daily. 4. Trazodone 50 mg at bedtime. 5. Tramadol 100 mg p.o. q.6 hours. 6. Coreg 6.25 mg b.i.d. 7. Cymbalta 30 mg p.o. daily. 8. Lasix 40 mg p.o. daily. 9. Gabapentin 300 mg p.o. b.i.d. 10. DuoNeb q.i.d. p.r.n. 11. Pravastatin 20 mg p.o. at bedtime. 12. He is to complete a prednisone taper over the next 9 days. 13. The patient's Eliquis has been discontinued secondary to his recent rectal bleeding and unknown etiology for this as there is no record of atrial fibrillation or DVT or PE. Job ID: [id number]
== END 2018-12-24 15:50 | disposition home or self-care (01) | DRG 191 ==
LOC: BURMED 18:00
PROVIDERS: ADMIT Family Medicine; ATTEND Family Medicine
DX: J44.0 Chronic obstructive pulmonary disease with (acute) lower respiratory infection (principal); I50.32 Chronic diastolic (congestive) heart failure; J20.8 Acute bronchitis due to other specified organisms; B95.62 Methicillin resistant Staphylococcus aureus infection as the cause of diseases classified elsewhere; A08.8 Other specified intestinal infections; I11.0 Hypertensive heart disease with heart failure; S22.39XD Fracture of one rib, unspecified side, subsequent encounter for fracture with routine healing; D69.59 Other secondary thrombocytopenia; T36.8X5A Adverse effect of other systemic antibiotics, initial encounter; I25.10 Atherosclerotic heart disease of native coronary artery without angina pectoris; E78.5 Hyperlipidemia, unspecified; K64.9 Unspecified hemorrhoids; D64.9 Anemia, unspecified; F32.9 Major depressive disorder, single episode, unspecified; Z79.2 Long term (current) use of antibiotics
CPT/HCPCS: 36415; 80048; 80053; 82565; 82607; 84443; 85014; 85018; 85025; 85049; 87177; 87324; 87449; A4216; J1642; J3370; J7506; J7512; J7620